=== PATIENT | female | born 1965 | race African-American/Black ===

== ENCOUNTER 2018-01-12 08:52 | Emergency (ER) | payer OTHER ==
[~2018-01-12] VITALS: Ht 152.4 cm; Wt 90.7 kg
--- NOTE | ~2018-01-12 | EKG ---
[place] [address] [facility] [place] [address] ELECTROCARDIOGRAM REPORT Name: LISA MENDOZA Room #: [facility]P [id number] Admission: 01/12/18 Attend Phys: Discharge: 01/12/18 Date of : 67 Report #: [id number] THIS REPORT FOR: //name// [facility] ED Test Date: 2018-01-12 Test Time: 08:59:50 Pat Name: LISA MENDOZA Department: Room: Gender: F Re Dye Hand: [facility] : 1965 Requested By: Faith Rubio Order Number: [id number] MD: Seymour Malik Measurements Intervals [place] Rate: 88 P: 50 CT: 134 QRS: 37 QRSD: 78 T: 126 QT: 361 QTc: 437 Interpretive Statements Sinus rhythm Anteroseptal infarct, old Abnormal T, consider ischemia, lateral leads No previous ECG available for comparison Electronically Signed On 01-12-2018 16:26:31 CDT by Seymour Malik [email or web address] <ELECTRONICALLY SIGNED> By: Seymour Malik MD, [facility] 01/12/18 [id number] Seymour Malik MD, FACC /EPI
[2018-01-12] MEDS ORDERED: AMLODIPINE BESY10 MG PO (09:47)
[2018-01-12 09:48] LABS: BASOPHILS 1.2 % (0.0-2.0); EOSINOPHILS 2.1 % (0.0-3.0); HEMATOCRIT 44.4 % (37.0-47.0); HEMOGLOBIN 15.2 gm/dL (12.0-15.0); LYMPHOCYTES 42.3 % (24.0-44.0); MCHC 34.3 g/dL (28.0-37.0); MCV 87.3 fL (80.0-100.0); MONOCYTES 6.3 % (1.0-8.0); PLATELET COUNT 280 thou/uL (150-400); POLYS 48.1 % (36.0-66.0); RBC 5.08 mil/uL (4.20-5.00); RDW 15.1 % (10.5-14.5); WBC 8.3 thou/uL (4.0-11.0)
[2018-01-12] MEDS ORDERED: PLAVIX 75 MG TA75 M1 PO (09:48)
[2018-01-12 09:52] LABS: ANION GAP 8 mmol/L (7-16); BUN 14 mg/dL (7-18); CALCIUM 9.4 mg/dL (8.5-10.1); CHLORIDE 103 mmol/L (98-107); CO2 27 mmol/L (21-32); CREATININE 0.8 mg/dL (0.6-1.0); GLUCOSE 171 mg/dL (74-106); POTASSIUM 3.9 mmol/L (3.5-5.1); SODIUM 138 mmol/L (136-145)
[2018-01-12 10:00] LABS: TROPONIN-I < 0.04 ng/mL (<0.06)
[2018-01-12 11:44] VITALS: BP 143/77
== END 2018-01-12 11:49 | disposition home or self-care (01) ==
LOC: ER 08:52
PROVIDERS: Emergency Medicine
DX: R60.0 Localized edema (principal); F17.210 Nicotine dependence, cigarettes, uncomplicated